=== PATIENT | female | born 1965 | race Caucasian/White ===

== ENCOUNTER → 2018-07-07 | Outpatient (CLI) | payer OTHER | LOC: MC.RAD 10:00 | DX: Z12.31 Encounter for screening mammogram for malignant neoplasm of breast (principal) ==

== ENCOUNTER → 2020-03-16 | Outpatient (REF) | LOC: WSOH 08:48 | DX: F17.210 Nicotine dependence, cigarettes, uncomplicated (principal); Z97.3 Presence of spectacles and contact lenses ==

== ENCOUNTER → 2020-11-29 | Outpatient (CLI) | payer OTHER | LOC: MC.RAD 09:56 | DX: N63.10 Unspecified lump in the right breast, unspecified quadrant (principal) ==

== ENCOUNTER → 2020-12-12 | Outpatient (CLI) | payer OTHER | LOC: MC.RAD 09:47 | DX: N63.10 Unspecified lump in the right breast, unspecified quadrant (principal) ==

== ENCOUNTER → 2022-05-09 | Outpatient (CLI) | payer OTHER | LOC: MC.RAD 08:48 | DX: Z12.31 Encounter for screening mammogram for malignant neoplasm of breast (principal) ==